=== PATIENT | female | born 2000 | race Two or more races ===

== ENCOUNTER 2020-08-16 07:23 | Emergency (ER) | payer OTHER ==
[~2020-08-16] VITALS: Ht 167.6 cm; Wt 54.0 kg
[2020-08-16 08:26] LABS: BASOPHILS % (AUTO) 1 % (0-1); EOSINOPHILS % (AUTO) 1 % (1-7); LYMPHOCYTES % (AUTO) 39 % (22-44); MEAN CORPUSCULAR HEMOGLOBIN 30.1 pg (27.0-34.8); MEAN CORPUSCULAR HGB CONC 33.1 g/dL (32.4-35.8); MEAN PLATELET VOLUME 8.7 fL (7.4-10.4); MONOCYTES % (AUTO) 6 % (2-9); NEUTROPHILS % (AUTO) 53 % (42-75); PLATELET COUNT 263 x10^3/uL (130-400); RED BLOOD COUNT 4.41 x10^6/uL (3.82-5.3); RED CELL DISTRIBUTION WIDTH 13.2 % (9.6-15.2)
[2020-08-16 08:35] LABS: ALBUMIN 3.9 g/dL (3.4-5.0); ANION GAP 5 mmol/L (5-15); CALCIUM 8.9 mg/dL (8.5-10.1); CHLORIDE 111 mmol/L (98-107); CREATININE 0.56 mg/dL (0.55-1.02)
[2020-08-16 08:38] LABS: MD NO
--- NOTE | 2020-08-16 08:40 | NUR ---
PT WALKED BACK FROM TRIAGE W/ CHIEF COMPLAINT OF VAG BLEED STARTING TODAY, SATURATING 5 PADS SINCE AWAKENING THIS MORNING. PT 2 MONTHS. BLEEDING CURRENTLY SLOWED PER PATIENT. PT A&O, RESPS EVEN AND UNLABORED. AND AT BEDSIDE. AWAITING US AND BLOODWORK.
--- NOTE | 2020-08-16 09:01 | NUR ---
PT IN US
[2020-08-16 10:07] VITALS: BP 106/65
--- NOTE | 2020-08-16 10:09 | NUR ---
PT BACK FROM US. NO INCREASE IN BLEEDING. PT A&O, RESPS EVEN AND UNLABORED, STATES NO PAIN AT THIS TIME. US RESULTS REVIEWED, DISCHARGE ORDERS RECIEVED.
--- NOTE | 2020-08-16 10:53 | NUR ---
DISCHARGE INSTRUCTIONS AND RETURN CRITERIA REVIEWED, PT VERBALIZED UNDERSTANDING. PT AMBULATED TO DISCHARGE DESK WITH A STEADY GAIT ACCOMPANIED BY AND .
== END 2020-08-16 10:53 | disposition home or self-care (01) ==
LOC: ED 08:28
DX: N92.0 Excessive and frequent menstruation with regular cycle (principal); R10.9 Unspecified abdominal pain
CPT/HCPCS: 36415; 76830; 80048; 82040; 84703; 85025; 99284